=== PATIENT | male | born 1965 | race Two or more races ===

== ENCOUNTER 2024-04-06 08:21 | Emergency (ER) | payer OTHER ==
[~2024-04-06] VITALS: Ht 182.9 cm; Wt 115.2 kg
[2024-04-06] MEDS ORDERED: CHILDREN'S ASPI81 MG PO (08:44)
[2024-04-06] MEDS ORDERED: COZAAR50 MG PO (08:44)
[2024-04-06 10:25] LABS: HEMATOCRIT 44.3 % (39.0-48.0); HEMOGLOBIN 14.8 g/dL (13-16.00); MEAN CELL VOLUME 93.1 fL (80.0-100.00); MEAN CORPUSCULAR HEMOGLOBIN 31.2 pg (27.00-32.0); MEAN CORPUSCULAR HGB CONC 33.5 g/dl (32.0-36.0); PLATELET COUNT 210 K/uL (150-450); RED BLOOD COUNT 4.76 M/uL (4.00-6.00)
[2024-04-06] MEDS ORDERED: KETOROLAC TROMETHAMINE 60 MG VIAL IM ONE ×2 (10:41→10:45)
[2024-04-06] MEDS ORDERED: CEFTRIAXONE SODIUM 1,000 MG VIAL ONE (10:41)
[2024-04-06] MEDS ORDERED: CEFTRIAXONE SODIUM 1,000 MG VIAL IM ONE (10:45)
== END 2024-04-06 11:25 | disposition home or self-care (01) ==
LOC: ER 08:23
PROVIDERS: General Practice
DX: M79.671 Pain in right foot (principal)